=== PATIENT | female | born 1965 | race Caucasian/White ===

== ENCOUNTER 2024-06-05 07:33 | Emergency (ER) | payer MEDICARE ==
[~2024-06-05] VITALS: Ht 160 cm; Wt 75.0 kg
[~2024-06-05 07:33] MED LIST: AMITRIPTYLINE H50 MG PO; ASPIRIN 81 LOW81 MG PO; BUPROPION HCL150 MG PO; CLARITIN10 M2 PO; DRISDOL50000 UNIT PO; HUMALOG100 UNIT SC; LANTUS100 UNIT SC; LISINOPRIL2.5 MG PO; PLAVIX75 MG PO; ROSUVASTATIN CA40 MG PO; STROMECTOL3 MG PO; SYNTHROID25 MCG PO; TOPROL XL25 M1 PO
[2024-06-05] MEDS ORDERED: GLIPIZIDE2.5 MG PO (08:14)
[2024-06-05] MEDS ORDERED: LISINOPRIL2.5 MG PO (08:14)
[2024-06-05] MEDS ORDERED: BUPROPN HCL300 MG PO (08:14)
[2024-06-05] MEDS ORDERED: ZPAK PO (08:14)
[2024-06-05] MEDS ORDERED: ROSUVASTATIN CA40 MG PO (08:14)
[2024-06-05] MEDS ORDERED: AMITRIPTYLINE H50 MG PO (08:14)
[2024-06-05] MEDS ORDERED: GABAPENTIN100 MG PO (08:14)
[2024-06-05] MEDS ORDERED: VITAMIN D50000 UNI1 PO (08:14)
[2024-06-05] MEDS ORDERED: LEVOTHYROXIN50 MCG PO (08:14)
[2024-06-05] MEDS ORDERED: PLAVIX75 MG PO (08:14)
[2024-06-05] MEDS ORDERED: BASAGLAR K100 UNIT/M SC (08:14)
[2024-06-05] MEDS ORDERED: TOPROL XL25 M1 PO (08:14)
[2024-06-05] MEDS ORDERED: INSULIN LISPRO 100 UNIT SC (08:16)
[2024-06-05 08:30] VITALS: BP 147/88
== END 2024-06-05 08:38 | disposition home or self-care (01) ==
LOC: ED 07:33
DX: Z76.0 Encounter for issue of repeat prescription (principal); I12.9 Hypertensive chronic kidney disease with stage 1 through stage 4 chronic kidney disease, or unspecified chronic kidney disease; E11.22 Type 2 diabetes mellitus with diabetic chronic kidney disease; N18.9 Chronic kidney disease, unspecified; I25.10 Atherosclerotic heart disease of native coronary artery without angina pectoris; F32.A Depression, unspecified; I25.2 Old myocardial infarction; Z85.3 Personal history of malignant neoplasm of breast; Z95.5 Presence of coronary angioplasty implant and graft; Z79.84 Long term (current) use of oral hypoglycemic drugs; Z79.4 Long term (current) use of insulin

== ENCOUNTER 2024-07-27 19:01 | Observation (INO) | payer MEDICARE ==
[2024-07-27] VITALS (14 sets, daily range): BP systolic 132–174; BP diastolic 56–81
[~2024-07-27] VITALS: Ht 160 cm; Wt 81.2 kg
[~2024-07-27 19:01] MED LIST changes: +BASAGLAR K100 UNIT/M SC; +BUPROPN HCL300 MG PO; +GABAPENTIN100 MG PO; +GLIPIZIDE2.5 MG PO; +INSULIN LISPRO 100 UNIT SC; +LEVOTHYROXIN50 MCG PO; +VITAMIN D50000 UNI1 PO; +ZPAK PO
[2024-07-27] MEDS ORDERED: LIDOCAINE VISCOUS 2% 15 ML UDC PO ONE (19:20)
[2024-07-27] MEDS ORDERED: NITROGLYCERIN 0.4 MG/TAB SL ONE (19:20)
[2024-07-27] MEDS ORDERED: ASPIRIN 81 MG/TAB PO ONE (19:20)
[2024-07-27] MEDS ORDERED: FAMOTIDINE 20 MG/TAB PO ONE (19:20)
[2024-07-27] MEDS ORDERED: ALUM & MAG HYDROX-SIMETHICONE 30 ML PO ONE (19:20)
[2024-07-27] MEDS ORDERED: NITROGLYCERIN 2% OINT UD 1 GM/PAK TD ONE (19:20)
[2024-07-27] MEDS ORDERED: METOPROLOL TARTRATE 25 MG/TAB PO ONE (19:20)
[2024-07-27 20:07] LABS: BASO% 0.3 % (0-3); EOS% 2.8 % (0-8); HEMATOCRIT 42.2 % (37.0-47.0); HEMOGLOBIN 13.8 g/dl (12.0-16.0); LYMPH% 19.4 % (15-41); MEAN CELL VOLUME 91.3 fL CALC (80.0-100.0); MEAN CORPUSCULAR HGB 29.9 pG CALC (26.0-32.0); MEAN CORPUSCULAR HGB CONC 32.7 g/dL CAL (32.0-36.0); MONO% 6.3 % (2-13); NEUT# 4.1 thou/uL (2.00-7.15); NEUT% 71.2 % (42-76); RED BLOOD COUNT 4.62 mill/uL (4.20-5.60); RED CELL DISTRI WIDTH 14.1 % (11.5-15.5)
[2024-07-27 20:30] LABS: BILIRUBIN, TOTAL 0.5 mg/dL (0.02-1.3); CREATININE 1.9 mg/dL (0.5-1.0); TOTAL PROTEIN 6.6 g/dL (6.3-8.2)
[2024-07-27 20:41] LABS: ALBUMIN 3.8 g/dL (3.2-5.0); POTASSIUM 4.9 mmol/l (3.5-5.1)
[2024-07-27 20:45] LABS: ACT PARTIAL THROMBO TIME 24.5 SECONDS (20.0-32.5); D-DIMER 0.26 mg/L (0.19-0.60); INTERNATIONAL NORMALIZED RATIO 0.9 RATIO (0.7-1.3)
[2024-07-27 20:46] LABS: PROTHROMBIN TIME 9.9 SECONDS (9.0-12.5)
[2024-07-27] MEDS ORDERED: INSULIN REGULAR (HUMAN) 100 UNIT/ML INJ IV ONE (20:50)
[2024-07-27] MEDS ORDERED: INSULIN REGULAR (HUMAN) 100 UNIT/ML INJ SC ONE (20:50)
[2024-07-27] MEDS ORDERED: ALUM & MAG HYDROX-SIMETHICONE 30 ML PO PRN (22:35)
[2024-07-27] MEDS ORDERED: FAMOTIDINE 10MG/ML 2ML SDV IV PRN (22:35)
[2024-07-27] MEDS ORDERED: Polyethylene Glycol 3350 17 GM/PKT PO PRN (22:35)
[2024-07-27] MEDS ORDERED: ONDANSETRON HCl 4 MG/2 ML SDV IV PRN (22:35)
[2024-07-27] MEDS ORDERED: ENOXAPARIN SODIUM 40 MG/0.4 ML SYR SC ONE (22:35)
[2024-07-27] MEDS ORDERED: IBUPROFEN 800 MG/TAB PO PRN (22:35)
[2024-07-27] MEDS ORDERED: ONDANSETRON 4 MG/TAB ODT PO PRN (22:35)
[2024-07-27] MEDS ORDERED: DEXTROSE 250 ML IV PRN (22:40)
[2024-07-27 23:07] LABS: URINE BILIRUBIN - DIPSTICK Negative (NEGATIVE); URINE BLOOD DIPSTICK Trace-lysed (NEGATIVE); URINE GLUCOSE - DIPSTICK 500 mg/dL (NEGATIVE); URINE KETONE Negative (NEGATIVE); URINE LEUK ESTERASE Negative (NEGATIVE); URINE NITRITE - DIPSTICK Negative (Negative); URINE PH 5.5 (4.5-8.0); URINE PROTEIN - DIPSTICK 100 mg/dL (NEG-TRACE); URINE SPECIFIC GRAVITY 1.015; URINE UROBILINOGEN - DIPSTICK 0.2 E.U./dL (0.2)
[2024-07-27 23:11] LABS: URINE COLOR Yellow
[2024-07-27 23:28] LABS: URINE EPITHELIAL CELLS FEW EPI/hpf (0-FEW)
[2024-07-27 23:29] LABS: URINE BACTERIA FEW hpf
[2024-07-28] VITALS (15 sets, daily range): BP systolic 112–151; BP diastolic 44–84
[2024-07-28 03:52] LABS: CHOLESTEROL HDL RATIO 3.8 (<4.4 (CALC))
[2024-07-28] MEDS ORDERED: INSULIN LISPRO 100 UNITS/ML ML SC SCH (07:00)
[2024-07-28] MEDS ORDERED: NITROGLYCERIN 0.4 MG/TAB SL PRN (07:35)
[2024-07-28] MEDS ORDERED: LACTATED RINGER'S 1,000 ML IV PRN (07:35)
[2024-07-28] MEDS ORDERED: DEXTROSE 250 ML IV PRN (08:55)
[2024-07-28] MEDS ORDERED: METOPROLOL SUCCINATE 25 MG/TAB-TOPROL XL PO SCH (09:00)
[2024-07-28] MEDS ORDERED: AMITRIPTYLINE HCL 25 MG TAB PO SCH (09:00)
[2024-07-28] MEDS ORDERED: GABAPENTIN 100 MG/CAP PO SCH (09:00)
[2024-07-28] MEDS ORDERED: ASPIRIN 81 MG/TAB PO SCH (09:00)
[2024-07-28] MEDS ORDERED: LISINOPRIL 2.5 MG TAB PO SCH (09:00)
[2024-07-28 09:21] LABS: ALBUMIN 3.4 g/dL (3.2-5.0); BILIRUBIN, TOTAL 0.4 mg/dL (0.02-1.3); CREATININE 1.6 mg/dL (0.5-1.0); POTASSIUM 4.1 mmol/l (3.5-5.1); TOTAL PROTEIN 6.2 g/dL (6.3-8.2)
[2024-07-28] MEDS ORDERED: buPROPion HCL 150 MG TAB SR PO SCH (21:00)
[2024-07-28] MEDS ORDERED: BUPRENORPHINE HCL PO SCH (21:00)
[2024-07-28] MEDS ORDERED: ATORVASTATIN CALCIUM 40 MG/TAB PO SCH (21:00)
[2024-07-29 00:44] VITALS: BP 142/41
[2024-07-29 04:53] VITALS: BP 154/62
[2024-07-29 07:08] LABS: BASO% 0.6 % (0-3); EOS% 3.2 % (0-8); HEMATOCRIT 37.8 % (37.0-47.0); HEMOGLOBIN 12.6 g/dl (12.0-16.0); LYMPH% 26.9 % (15-41); MEAN CELL VOLUME 92.4 fL CALC (80.0-100.0); MEAN CORPUSCULAR HGB 30.8 pG CALC (26.0-32.0); MEAN CORPUSCULAR HGB CONC 33.3 g/dL CAL (32.0-36.0); MONO% 8.4 % (2-13); NEUT# 3.06 thou/uL (2.00-7.15); NEUT% 60.9 % (42-76); RED BLOOD COUNT 4.09 mill/uL (4.20-5.60); RED CELL DISTRI WIDTH 13.8 % (11.5-15.5)
[2024-07-29 07:09] VITALS: BP 151/58
[2024-07-29 07:22] LABS: ALBUMIN 3.2 g/dL (3.2-5.0); BILIRUBIN, TOTAL 0.5 mg/dL (0.02-1.3); CREATININE 1.5 mg/dL (0.5-1.0); MAGNESIUM 1.9 mg/dL (1.6-2.3); POTASSIUM 4.2 mmol/l (3.5-5.1); TOTAL PROTEIN 5.8 g/dL (6.3-8.2)
[2024-07-29] MEDS ORDERED: INSULIN GLARGINE 100 UNITS/ML SC SCH (09:00)
[2024-07-29 11:52] VITALS: BP 148/59
== END 2024-07-29 16:55 | disposition home or self-care (01) ==
LOC: ED 19:01 → ED-I 22:20 → ED 22:38 → ICU 22:39 → MS2 22:39 → ICU 22:39 → MS2 07-28 17:46
PROVIDERS: Family Medicine; ADMIT Internal Medicine; ATTEND Internal Medicine
DX: R07.89 Other chest pain (principal); K85.90 Acute pancreatitis without necrosis or infection, unspecified; N17.9 Acute kidney failure, unspecified; E11.65 Type 2 diabetes mellitus with hyperglycemia; I25.10 Atherosclerotic heart disease of native coronary artery without angina pectoris; I12.9 Hypertensive chronic kidney disease with stage 1 through stage 4 chronic kidney disease, or unspecified chronic kidney disease; E11.22 Type 2 diabetes mellitus with diabetic chronic kidney disease; N18.9 Chronic kidney disease, unspecified; E11.40 Type 2 diabetes mellitus with diabetic neuropathy, unspecified; E03.9 Hypothyroidism, unspecified; F32.A Depression, unspecified; I25.2 Old myocardial infarction; Z95.5 Presence of coronary angioplasty implant and graft; Z79.4 Long term (current) use of insulin; Z79.84 Long term (current) use of oral hypoglycemic drugs
CPT/HCPCS: J1650; J1815